=== PATIENT | male | born 1935 | race Caucasian/White ===

== ENCOUNTER 2023-10-28 12:30 | Emergency (ER) | payer MEDICARE, OTHER ==
[2023-10-28] MEDS ORDERED: Sodium Chloride 0.9% 10 ML Syringe FLUSH PRN (13:04)
[2023-10-28 13:12] LABS: BASOPHILS PERCENT AUTO 0.2 % (0.3-3.8); EOSINOPHILS ABSOLUTE AUTO 0.2 x10-3/uL (0.0-0.6); EOSINOPHILS PERCENT AUTO 1.6 % (0.1-6.8); HEMATOCRIT 45.2 % (38.3-50.1); HEMOGLOBIN 15.1 g/dL (12.9-17.7); LYMPHOCYTES ABSOLUTE AUTO 2.2 x10-3/uL (0.5-4.5); LYMPHOCYTES PERCENT AUTO 21.3 % (15.8-45.3); MEAN CORPUSCULAR HGB CONC 33.4 g/dL (28.7-35.3); MEAN CORPUSCULAR VOLUME 92.8 fL (80.8-98.7); MEAN PLATELET VOLUME 6.9 fL (6.7-11.0); MONOCYTES ABSOLUTE AUTO 0.6 x10-3/uL (0.0-1.2); MONOCYTES PERCENT AUTO 5.6 % (5.5-15.2); NEUTROPHILS ABSOLUTE AUTO 7.3 x10-3/uL (1.7-6.9); NEUTROPHILS PERCENT AUTO 71.3 % (40.3-71.8); PLATELET COUNT,PLT 302 x10(3)uL (117-477); RED BLOOD CELL COUNT 4.86 x10(6)uL (3.90-5.90); RED CELL DISTRIBUTION WIDTH 13.8 % (12.4-15.0); WHITE BLOOD CELL COUNT,WBC 10.2 x10-3/uL (3.2-10.1)
[2023-10-28 13:16] LABS: BLOOD UREA NITROGEN,BUN 20 mg/dL (7-18); BUN/CREATININE RATIO 18.2 (9-20); CALCIUM 8.6 mg/dL (8.6-10.2); CARBON DIOXIDE,CO2 29 mmol/L (21-32); CHLORIDE,CL 103 mmol/L (100-110); CREATININE 1.1 mg/dL (0.70-1.30); EST CRCL DRUG DOSING (CG) 51.93 mL/min; ESTIMATED GFR 65 mL/min (>60); GLUCOSE RANDOM 118 mg/dL (80-116); SODIUM,NA 140 mmol/L (135-145)
[2023-10-28] MEDS: Aspirin 81 MG Tab.Chew PO ONE (13:19)
[2023-10-28 13:22] LABS: A/G RATIO 0.9; ALANINE AMINOTRANSFERASE,ALT 13 U/L (12-36); ALBUMIN 3.3 g/dL (3.2-4.6); ALKALINE PHOSPHATASE 74 IU/L (56-112); ASPARTATE AMNIOTRANSFERASE,AST 13 IU/L (5-25); BILIRUBIN TOTAL 1.5 mg/dL (0.1-1.3); PROTEIN TOTAL,TP 7.1 g/dL (6.0-8.0)
[2023-10-28 14:22] LABS: INR 0.96 (1.00-1.24)
[2023-10-28] MEDS: Heparin Sodium 5,000 Units/ML Vial IVPUSH ONE (14:26)
[2023-10-28] MEDS: Heparin Sodium/0.45% NaCl 500 ML IV SCH (14:28)
[2023-10-28] MEDS: Sodium Chloride 0.9% 1,000 ML IV SCH (14:33)
== END 2023-10-28 16:00 ==
LOC: FB.ED 12:30
DX: I21.4 Non-ST elevation (NSTEMI) myocardial infarction (principal); Z79.899 Other long term (current) drug therapy; Z88.5 Allergy status to narcotic agent; Z88.8 Allergy status to other drugs, medicaments and biological substances
CPT/HCPCS: 36415; 71045; 80053; 83735; 84484; 85025; 85610; 85730; 93005; 96365; 99285-25; A9270-GY; J1644; J7030